=== PATIENT | female | born 1995 | race Caucasian/White ===

== ENCOUNTER 2024-05-21 00:30 | Day surgery (SDC) | payer OTHER, SELFPAY ==
[2024-05-13 09:48] VITALS: BMI 58.6
--- NOTE | 2024-05-13 09:49 | PC.NURSE ---
Report to the Outpatient Waiting Room, entrance under the green pavilion located off [facility], at time _1pm_ on date _[phone]_. Planned Procedure Time: _3pm_.? Time changes happen often and if your time is changed the preop area will call you the afternoon before. - You and your visitor will be asked to self-screen and do not enter if you have any COVID symptoms. Please call surgeon if you need to reschedule. - A mask is optional within the hospital at this time. Patients may have clear liquids (water, carbonated beverages, clear teas, apple juice) until 3 hours prior to surgery with a maximum of 20 ounces. - No food from midnight until time of surgery and no smoking, or chewing tobacco (or any form of nicotine). No chewing gum, candy or mints. Take only the following medications with a SIP of water on the morning of surgery: ___Sertraline, Symbicort and if needed Albuterol.____ DO NOT STOP ANY OF YOUR OTHER PRESCRIPTION MEDICATIONS PRIOR TO SURGERY EXCEPT THE FOLLOWING Hold all vitamins and supplements for 3 days per anesthesiologist. Medications to discontinue per physician Date to take last dose Please no make-up, nail surinamese, hairspray, perfume, deodorant, or body powder the day of surgery.? No jewelry (including any body piercings) or valuables the day of surgery, leave them at home.? Please take a shower or bath the night before, or the morning of, surgery with an antibacterial soap.? Wear comfortable, loose fitting clothing.? - Jewelry must be removed prior to entering the operating room.? Rings and piercings that are not removed may be cut off. - The hospital will not accept responsibility for valuables.? - Please leave all valuables, including medications, at home the day of surgery. If you are going home after surgery, a licensed industrial truck driver must drive you home.? - NO public transportation without another adult if you receive anesthesia. - We recommend that an adult stay with you for 24 hours following discharge. - We also recommend that you do not drive, make important decision, drink alcoholic beverages, or take any drugs that were not prescribed by your health care provider for at least 24 hours after your discharge time. Follow any additional instructions given to you from your surgeon. Telephone instructions given to __Юлия___and asked if any additional questions and then verbalized understanding. Patient advised to call surgeon office or pre surgery nurse liaison [phone] if any additional questions.
[2024-05-21] VITALS (7 sets, daily range): BP systolic 101–148; BP diastolic 66–101; PULSE 76–92; RESP 16–20; TEMP 36.2–36.8; O2SAT 93–100
--- OUTSIDE RECORDS SUMMARY | 2024-05-21 00:32 | XMS_ITS | CONTINUITY OF CARE DOCUMENT ---
Author Name ramsey mustafa Address Unknown Organization [facility] Address [id number] [place] [address] [address] [place] [address] Phone [phone] Care Team Providers Care Teletypesetter Monitor Name Role Phone Tom Laureano MD Unavailable [phone] Tom Laureano MD Unavailable [phone] INS[employer]ANCE [employer] Payer name Policy type / Coverage type [place] [employer] ID [facility] [id number] Other [id number]
--- OUTSIDE RECORDS SUMMARY | 2024-05-21 00:32 | XMS_ITS | Data Portability ---
Author Organization 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 Patient will come back in a year unless there are new symptoms. [email or web address] Not available 08/01/2019 10:48:20 06/21/2021 06/21/2021 Annual gynecological exam performed. Patient will come back in a year unless there are new symptoms. Not available 06/17/2021 13:46:14 04/14/2024 04/14/2024 Annual gynecological exam performed. Patient will come back in a year unless there are new symptoms. [email or web address] Not available 04/11/2024 09:08:50 Plan of Treatment Reminders Order Date Submit Date Provider Last Modified By Organization Details Last Modified Time Details Appointments SURG Salpingec deanna 2024 03:00P Jessica MOTA MD Not available Not available Not available Lab pap, IG + HR HPV - HPV regardles s but if HPV is positive need subtyping 16,18/45a dd ct/gc/tri ch 2024 025 [facility] (Lab), [address], [place], [address], 04/17/2024 13:47:58 Referral None recorded. Procedures None recorded. Surgeries salpingec deanna, [facility] (SUR[facility]) [address] [facility], [address], [place], [address], 05/02/2024 10:20:56 Imaging None recorded. Medication Orders None recorded. Patient TargetsNo targets recorded. Patient InstructionsNo instructions recorded. Reason for Referral None Reported. Results Created Date Observation Date Name Description Value Unit Range Abnormal Flag Note LastModifiedBy Organization Detail LastModifiedTime 08/01/19 20 08/03/2019 CT + NG DNA, PCR, unspe cifie d speci men trichomonas vaginalis, aptima (panther) NOT DETECT ED normal DNA testi ng perfo rmed by Trans cript ion Media jeff Ampli ficat ion (TMA) These resul ts shoul d be inter prete d in light of all clini jean-paul and labor atory findi ngs. This assay is highl y accur ate, but rare false posit amandeep and negat amandeep resul ts may occur . Posit amandeep resul ts in low preva lence popul ation s may requi re re-ev aluat ion. A negat amandeep resul t does not precl ude a possi ble infec tion due to a speci men inade quacy or sampl ing error . Test perfo rmed by [facility], d/b/a Kait kennedy, [address], [place] [address] , Tari Crawley ra, DO, Labor atory Dire tor. Not Available [facility] ([facility]) [address], [place], [address], 08/04/2019 09:04:30 08/01/19 20 08/03/2019 CT + NG DNA, PCR, unspe cifie d speci men neisseria gonorrhoeae, aptima NOT DETECT ED normal DNA testi ng perfo rmed by Trans cript ion Media jeff Ampli ficat ion (TMA) These resul ts shoul d be inter prete d in light of all clini jean-paul and labor atory findi ngs. This assay is highl y accur ate, but rare false posit amandeep and negat amandeep resul ts may occur . Posit amandeep resul ts in low preva lence popul ation s may requi re re-ev aluat ion. A negat amandeep resul t does not precl ude a possi ble infec tion due to a speci men inade quacy or sampl ing error . Test perfo rmed by [facility] [employer] [employer], d/b/a [facility], [address], [place] [address] , Tari Crawley ra, DO, Labor atory Direc tor. Not Available [facility] ([facility]) [address], [place], [address], 08/04/2019 09:04:30 08/01/19 20 08/03/2019 CT + NG DNA, PCR, unspe cifie d speci men chlamydia trachomatis, aptima NOT DETECT ED normal DNA testi ng perfo rmed by Trans cript ion Media jeff Ampli ficat ion (TMA) These resul ts shoul d be inter prete d in light of all clini jean-paul and labor atory findi ngs. This assay is highl y accur ate, but rare false posit amandeep and negat amandeep resul ts may occur . Posit amandeep resul ts in low preva lence popul ation s may requi re re-ev aluat ion. A negat amandeep resul t does not precl ude a possi ble infec tion due to a speci men inade quacy or sampl ing error . Test perfo rmed by [facility] [employer], [employer], d/b/a [facility], [address], [place] [address] , Tari Crawley ra, DO, Labor atory Direc tor. Not Available [facility] ([facility]) [address], [place], [address], 08/04/2019 09:04:30 06/22/19 22 06/21/2021 IMAGE GUIDE D PAP, REFLE X HPV IF ASCUS ONLY image guided Pap, reflex HPV ASCUS only SEE RESULT S BELOW CASE REPOR T: Cytol ogy Gynec ologi jean-paul Repor t Case: [id number] Autho ambrocio andrews Provi sheri: Ruby Winkler NP Colle cted: 06/21 1049 Order ing Locat ion: [place] [facility] Recei mili: 06/22 0804 First Scree n: Jeanie guerrero, Sidney wu, CT Speci men: Scree silvina Pap - Image d, Cervi x STATE MENT OF ADEQU ACY: Satis facto ry for evalu ation Trans forma tion zone compo nent prese nt FINAL DIAGN OSIS: Negat amandeep for Intra epith elial Lesio n or Quyen young (NIL) . Shift in dian sugge stive of bacte rial vagin osis. Elect jyothi garcia florinda d by Jeanie guerrero, Sidney wu, CT on 2021 at 2:53 PM ----- ----- ----- ----- ----- ----- ----- ----- ----- ----- ----- ----- ----- ----- ----- ----- ----- ---- COMME NT: Note: This speci men was revie wed by a Cytot echno logis t and/o r Patho logis t (as indic ated in this repor t) after evalu ation using the Thinp rep Imagi ng Syste m. CLINI JEAN-PAUL INFOR MATIO N: Menst rual Statu s: LMP (if appli cable ): Clini jean-paul Histo ry/Pr eviou s Pap: Type of Neopl gerda (if appli cable ): Signi fican t Clini jean-paul Findi ngs: Other Histo ry: Hormo ada (if appli cable ): PAP EDUCA RADHA L NOTE: The Pap Test is a scree silvina test with an inher ent false negat amandeep rate. Liqui d-bas ed sampl ing may decre ase, but will not elimi arthur, false negat amandeep resul ts. A negat amandeep resul t does not precl ude the prese nce and/o r devel opmen t of disea se, since the prese nce of abnor mal cells in the sampl e depen ds on the locat ion of the lesio n and sampl ing techn ique. Brianna nued regul ar scree silvina is the best metho d of cance r preve ntion . If repor jeff cytol ogic findi ng do not corre late with physi jean-paul and/o r histo rical findi ngs, furth er inves tigat ion is recom ovidio d, as clini milvia warra nted. Not Available [facility] (Lab) [address], [place], [address], 06/27/2021 15:55:33 06/22/19 22 06/21/2021 TRICH OMONA S VAGIN SKYE (RRNA ) trichomonas vaginalis ribosomal RNA (rrna) Negati ve negati ve Not Available [facility] (Lab) [address], [place], [address], 06/27/2021 15:55:34 06/22/19 22 06/21/2021 CT/GC (JESENIA) , THINP REP VIAL chlamydia trachomatis, PCR Negati ve negati ve Not Available [facility] (Lab) [address], [place], [address], 06/27/2021 15:55:34 06/22/19 22 06/21/2021 CT/GC (JESENIA) , THINP REP VIAL neisseria gonorrhoeae, PCR Negati ve negati ve Not Available [facility] (Lab) [address], [place], [address], 06/27/2021 15:55:34 06/30/19 22 06/29/2021 pregn rigoberto test, urine HCG negati ve Not Available [place] [address], [place], [address], 06/29/2021 09:44:03 04/15/19 25 04/14/2024 IMAGE GUIDE D PAP AND HPV REGAR DLESS image guided Pap, HPV regardless of Pap result SEE RESULT S BELOW CASE REPOR T: Cytol ogy Gynec ologi jean-paul Repor t Case: [id number] Autho ambrocio andrews Provi sheri: Dermo alecia, Ally , ANP, FACTORY MAINTENANCE MANAGER Colle cted: 04/14 1118 Order ing Locat ion: [place] [facility] Recei mili: 04/15 0855 First Scree n: Ava Faye, CT Rescr een: Andrenia Gallagher ret, CT Speci men: Scremeghna reyesg Pap - Image d, Cervi x STATE MENT OF ADEQU ACY: Satis facto ry for evalu ation Trans forma tion zone compo nent absen t The absen ce of an endoc ervic al compo nent was confi rmed by an addit ional scree ner. ----- ----- ----- ----- ----- ----- ----- ----- ----- ----- ----- ----- ----- ----- ----- ----- ----- ---- FINAL DIAGN OSIS: Negat amandeep for Intra epith elial Lesstacey farias or Quyen young (NIL) . Shift in dian sugge stive of bacte rial vagin osis. 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 COMME NT: This speci men was revie wed by a Cytot echno logis t and/o r Patho logis t (as indic ated in this repor t) after evalu ation using the Thinp rep Imagi ng Syste m. CLINI JEAN-PAUL INFOR MATIO N: Menst rual Statu s: LMP (if appli cable ): Clini jean-paul Histo ry/Pr eviou s Pap: Type of Neopl gerda (if appli cable ): Signi fican t Clini jean-paul Findi ngs: Other Histo ry: Hormo ada (if appli cable ): PAP EDUCA RADHA L NOTE: The Pap Test is a scree silvina test with an inher ent false negat amandeep rate. Liqui d-bas ed sampl ing may decre ase, but will not elimi arthur, false negat amandeep resul ts. A negat amandeep resul t does not precl ude the prese nce and/o r devel opmen t of disea se, since the prese nce of abnor mal cells in the sampl e depen ds on the locat ion of the lesio n and sampl ing techn ique. Brianna nued regul ar scree silvina is the best metho d of cance r preve ntion . If repor jfef cytol ogic findi ng do not corre late with physi jean-paul and/o r histo rical findi ngs, furth er inves tigat ion is recom ovidio d, as clini milvia tsai nted. Not Available [facility] (Lab) [address], [place], [address], 04/17/2024 13:47:58 04/15/19 25 04/14/2024 CT/GC (JESENIA) , THINP REP VIAL chlamydia trachomatis, PCR Negati ve negati ve Not Available [facility] (Lab) [address], [place], [address], 04/17/2024 13:47:58 04/15/19 25 04/14/2024 CT/GC (JESENIA) , THINP REP VIAL neisseria gonorrhoeae, PCR Negati ve negati ve Not Available [facility] (Lab) [address], [place], [address], 04/17/2024 13:47:58 04/15/19 25 04/14/2024 TRICH OMONA S VAGIN SKYE (RRNA ) trichomonas vaginalis ribosomal RNA (rrna) Negati ve negati ve Not Available [facility] (Lab) [address], [place], [address], 04/17/2024 13:47:59 Result Notes None recorded. Procedures Surgical History Date Name Laterality Status Provider Name and Address Organization Details Recorded Time 5 Date of Last Pap Smear completed Vanessa Fierro [facility] 04/25/2024 11:43:00 2 Nexplanon Insert completed Shirin Barr [facility] 06/29/2021 09:43:25 2 Nexplanon Removal completed SCOTT Jorgensen [address], [place], [address], [facility] 06/29/2021 09:29:03 Caesarean Section completed Tabitha Andersen [facility] 06/21/2021 11:01:17 Imaging Results None recorded. Procedure Notes None recorded. Medical Equipment None Reported. Allergies No known drug allergies Medications Name Sig Start Date Stop Date Status Note LastModified by Organization Details LastModified Time promethazin e-DM 6.25 mg-15 mg/5 mL oral syrup TAKE 5 ML BY MOUTH EVERY 4 HOURS FOR 5 DAYS 04/14 completed Not Available Not Available Not Available albuterol sulfate 2.5 mg/3 mL (0.083 %) solution for nebulizatio n INHALE 3 ML BY NEBULIZAT ION THREE TIMES DAILY active Not Available Not Available No t Available azithromyci n 250 mg tablet TAKE 2 TABLETS BY MOUTH TODAY, THEN TAKE 1 TABLET DAILY FOR 4 DAYS DIRECTED 04/14 completed Not Available Not Available Not Available fluconazole 150 mg tablet 07/31 completed Not Available Not Available Not Available ondansetron HCl 8 mg tablet TAKE 1 TABLET BY MOUTH TWICE DAILY FOR 7 DAYS NEEDED 06/21 completed Not Available Not Available Not Available prednisone 20 mg tablet TAKE 1 TABLET BY MOUTH EVERY DAY FOR 10 DAYS 04/14 completed Not Available Not Available Not Available tramadol 50 mg tablet 07/31 completed Not Available Not Available Not Available amoxicillin 500 mg tablet 07/31 completed Not Available Not Available Not Available benzonatate 100 mg capsule TAKE 1 CAPSULE BY MOUTH EVERY 8 HOURS NEEDED FOR COUGH AND CONGESTIO N 04/14 completed Not Available Not Available Not Available oseltamivir 75 mg capsule TAKE 1 CAPSULE BY MOUTH TWICE A DAY FOR 5 DAYS 04/14 completed Not Available Not Available Not Available sertraline 25 mg tablet TAKE 1 TABLET BY MOUTH EVERY DAY 04/14 completed Not Available Not Available Not Available montelukast 10 mg tablet TAKE 1 TABLET BY MOUTH EVERY DAY AT BEDTIME NEEDED 04/14 completed Not Available Not Available Not Available ergocalcife rol (vitamin D2) 1,250 mcg (50,000 unit) capsule TAKE 1 CAPSULE BY MOUTH EVERY WEEK FOR 14 DAYS DIRECTED 06/21 completed Not Available Not Available Not Available albuterol sulfate HFA 90 mcg/actuati on aerosol inhaler TAKE 2 PUFFS BY MOUTH EVERY 4 HOURS NEEDED active Not Available Not Available No t Available sertraline 50 mg tablet TAKE 1 TABLET BY MOUTH EVERY DAY FOR 30 DAYS active Not Available Not Available No t Available doxycycline hyclate 100 mg tablet TAKE 1 TABLET BY MOUTH TWICE DAILY 04/14 completed Not Available Not Available Not Available escitalopra m 10 mg tablet 04/14 completed Not Available Not Available Not Available budesonide- formoterol HFA 160 mcg-4.5 mcg/actuati on aerosol inhaler INHALE 2 PUFFS BY MOUTH TWICE DAILY DIRECTED 04/14 completed Not Available Not Available Not Available Nexplanon 68 mg subdermal implant Inject by subcutane ous route. active Not Available Not Available No t Available Vitals Date Recorded Body height Body mass index (BMI) Body weight Systolic blood pressure Diastolic blood pressure Provider Name and Address Organization Details Last Updated DateTime 08/01/2019 1935.48 cm 0.3 kg/m2 731662.7 2 g 122 mm[Hg] 85 mm[Hg] Vito Gray [facility] 0 10:48:51 Date Recorded Body height Body mass index (BMI) Body weight Systolic blood pressure Diastolic blood pressure Provider Name and Address Organization Details Last Updated DateTime 06/21/2021 160.02 cm 50.2 kg/m2 764179.0 8 g 135 mm[Hg] 91 mm[Hg] Tabitha Andersen [facility] 2 11:01:08 Date Recorded Body height Body mass index (BMI) Body weight Systolic blood pressure Diastolic blood pressure Provider Name and Address Organization Details Last Updated DateTime 06/29/2021 160.02 cm 50.7 kg/m2 957974.4 2 g 129 mm[Hg] 84 mm[Hg] Shirin Barr [facility] 2 09:37:26 Date Recorded Body height Body mass index (BMI) Body weight Systolic blood pressure Diastolic blood pressure Provider Name and Address Organization Details Last Updated DateTime 04/14/2024 160.02 cm 58.4 kg/m2 405226.7 6 g 137 mm[Hg] 78 mm[Hg] Jojo Pereraton [facility] 5 10:47:24 Date Recorded Body height Body mass index (BMI) Body weight Systolic blood pressure Diastolic blood pressure Provider Name and Address Organization Details Last Updated DateTime 04/25/2024 160.02 cm 58.5 kg/m2 127718.4 8 g 112 mm[Hg] 64 mm[Hg] Vanessa Fierro [facility] 5 11:42:42 Social History Question Answer Notes LastModified by Organizat ion Details LastModified Time Tobacco Smoking Status Current Every Day Smoker Elaine moore [facility] 06/29/2021 09:12:23 Do You Have An Advance Directive? No Information not available 06/21/2021 What Is Your Level Of Alcohol Consumption? Occasional Information not available 06/21/2021 How Many Years Have You Consumed Alcohol? 7 Information not available 06/21/2021 Are You Blind Or Do You Have Difficulty Seeing? No Information not available 06/21/2021 What Is Your Level Of Caffeine Consumption? Occasional Information not available 06/21/2021 How Much Tobacco Do You Chew? None Information not available 06/21/2021 In The 14 Days Before Symptom Onset, Have You Had Close Contact With A Laboratory-confir med COVID-19 While That Case Was Ill? No Information not available 06/21/2021 In The 14 Days Before Symptom Onset, Have You Had Close Contact With A Person Who Is Under Investigation For COVID-19 While That Person Was Ill? No Information not available 06/21/2021 Have You Been To An Area Known To Be High Risk For COVID-19? No [email or web address] Information not available 04/25/2024 Are You Deaf Or Do You Have Serious Difficulty Hearing? No Information not available 06/21/2021 What Type Of Diet Are You Following? REGULAR Information not available 06/21/2021 What Is The Highest Grade Or Level Of School You Have Completed Or The Highest Degree You Have Received? 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 No Information not available 06/21/2021 Do You Use Protection During Sex? No Information not available 06/21/2021 Do You Use Your Seat Belt Or Car Seat Routinely? Yes Information not available 06/21/2021 Do You Have Smoke And Carbon Monoxide Detectors In Your Home? Yes Information not available 06/21/2021 How Much Tobacco Do You Smoke? No Information not available 06/21/2021 Do You Feel Stressed (tense, Restless, Nervous, Or Anxious, Or Unable To Sleep At Night)? [id number] Information not available 06/21/2021 Do You Use Any Illicit Or Recreational Drugs? Yes Information not available 06/21/2021 Do You Use Sunscreen Routinely? No Information not available 06/21/2021 Have You Used IV Drugs? No Information not available 06/21/2021 Sex: Unknown Functional Status Question Answer Note LastModified by Organizat ion Details LastModified Time Do you have difficulty walking or climbing stairs? No Information not available 06/29/2021 Are you able to walk? [email or web address] Information not available 06/21/2021 Are you able to care for yourself? Yes [email or web address] Information not available 06/29/2021 Do you have difficulty dressing or bathing? No [email or web address] Information not available 06/29/2021 What is your exercise level? Occasional Information not available 06/21/2021 Mental Status None recorded. Family History Relationship Description Onset Age of this Age Resolved Age Notes LastModified by Organization Details LastModified Time Mother Asthma [email or web address] Not available 10:49:53 Maternal Grandfather Diabetes mellitus [email or web address] Not available 2019 10:50:04 Paternal Grandmother Carcinoma in situ of breast Not available 2021 09:12:22 Medical History Condition Response Allergies (Food, seasonal, environmental ) N Other N Drug/Latex Allergies/Reactions N Breast Cancer N Blood Transfusion N Dermatologic Disorders N Lung Disease N Defects or Inherited Disease N Breast Problem N Gestational Diabetes N Hematologic disorders N Anesthesia Complications N History of STI N Deep Vein Thrombosis N Polycystic ovary syndrome N Anxiety Disorder N Autoimmune disease N Arthritis N Polyps N Infertility N Acid Reflux (GERD) N History of abnormal pap N Cancer N Varicosities N Stroke N Neurologic/Epilepsy N Endometriosis N High Cholesterol N Fibromyalgia N Headaches N Kidney Disease N Heart Problems N Thyroid Problems N Kidney or Bladder Problems N GI Problems N Eating Disorder N Anemia N Art (IVF or FET) N Psychiatric Illness N Ovarian Cancer N Diabetes N Pulmonary (TB, Asthma) N Hepatitis/Liver Disease N No Past Medical History N Eczema N Urinary Tract Infection N Abuse/Domestic Violence N Asthma Y Trauma/Violence N Depression/ depression N Heart Disease N Pre-Eclampsia N Hypertension N Osteoporosis N Thrombophilias N Gynecological History Statement/Question Response Abnormal Pap N Flow Moderate Date of LMP 03/20/2024 Was last menstrual period normal N STIs/STDs N HPV Vaccine Y Duration of Flow (days) 8 Current Control Method Implant Age at First Child 16 Date of control 07/09/2018 Frequency of Cycle (Q days) 19 Sexually Active? Y Implant Menses Monthly N Age of first menstrual cycle 11 Date of Last Pap Smear 04/14/2024 Sexual Problems? N Desired Control Method Sterilizati on LMP Approximate N Obstetrics History GPAL:G 1 P 1 0 0 1 Type Value Full Term 1 Living 1 Total 1 Past Encounters Encounter ID Performer Location Encounter Start Date Encounter Closed Date Diagnosis/Indication Diagnosis SNOMED-CT Code Diagnosis ICD10 Code Diagnosis [id number] [address] [address] 08/01/2019 10:32:18 08/01/2019 11:27:10 Gynecologic examination 18414619 Z01.419 Take Calcium with Vitamin D 1200mg daily if not receiving in daily diet. It is strongly advised to have an annual flu shot and up can obtain at most pharmacies . If you have not had a TDap shot in the last 10 years you should obtain one as well. Discussed with patient & provided with informatio n regarding Gardisil vaccine to prevent the 4 strains for HPV that cause cervical cancer if under age 26. Encourage safe sexual practices, to use condoms and limit partners if not already in a monogamous relationsh ip. Do monthly self breast exams. Have mammogram yearly or every other year depending on family history. BRCA testing is now available for patients with strong genetic history of female cancer. If interested contact the office. Engage in daily exercise of low impact aerobic exercise 45-60 minutes 4-5 times weekly. Avoid tobacco and illicit drugs as well as using moderation with alcohol intake less than 1-2 8 oz beverages daily. This lifestyle behavior pattern will lead to less health conditions and longer life span. If BMI greater than 25 weight watchers or dietary consult advised. Patient received above instructio ns, and questions have been answered. If you have any questions please call or respond to this email. Patient was made aware of the patient portal and may obtain a paper copy of today's plan if desired. Pap defer until 2020 per asccp unless otherwise indicated. STD screen sent CBE done SBE taught [id number] SCOTT Jorgensen [place] [address] [address] 06/21/2021 10:28:59 06/21/2021 11:28:52 Gynecologic examination [id number] Z01.419 Take Calcium with Vitamin D 1200mg daily if not receiving in daily diet. It is strongly advised to have an annual flu shot and up can obtain at most pharmacies . If you have not had a TDap shot in the last 10 years you should obtain one as well. Discussed with patient & provided with informatio n regarding Gardisil vaccine to prevent the 4 strains for HPV that cause cervical cancer if under age 26. Encourage safe sexual practices, to use condoms and limit partners if not already in a monogamous relationsh ip. Do monthly self breast exams. Have mammogram yearly or every other year depending on family history. BRCA testing is now available for patients with strong genetic history of female cancer. If interested contact the office. Engage in daily exercise of low impact aerobic exercise 45-60 minutes 4-5 times weekly. Avoid tobacco and illicit drugs as well as using moderation with alcohol intake less than 1-2 8 oz beverages daily. This lifestyle behavior pattern will lead to less health conditions and longer life span. If BMI greater than 25 weight watchers or dietary consult advised. Patient received above instructio ns, and questions have been answered. If you have any questions please call or respond to this email. Patient was made aware of the patient portal and may obtain a paper copy of today's plan if desired. WWE, no issuesNo hx of abnormal papsPap done todaySTI testing added to papNexplan on expires 07/09/2021 , desires to continue this method of controlShe will RTC for removal/in sert prior to the expiration dateUTD with routine labs with PCPRTC for removal/in sert Venereal d isease screening [id number] Z11.3 [facility] [id number] Z30.9 [id number] SCOTT Jorgensen [place] [address] [address] 06/29/2021 09:09:49 06/29/2021 10:12:32 Insertion of subcutaneous contraceptive [id number] Z30.9 Removal site was cleansed with betadine and 3cc of lidocaine used for anesthesia . Device was removed in normal fashion without difficulty .She was given all the r/b/a of placement of the Nexplanon device and has signed the consent. She is fully aware of all possible side effects of the device and has decided to move forward with placement. Device was placed in the left arm per usual fashion w/o complicati on and patient instructed to f/u in one month or earlier if there are any si/sx of infection or hypersensi tivity at the insertion site. Will have her f/u in 2 months for a med check Contracept ion care management [id number] Z30.9 Removal of subcutaneous contraceptive [id number] Z30.46 [id number] ALLY MARIA NP [place] [address] [address] 04/14/2024 10:38:53 04/14/2024 11:10:27 Gynecologic examination [id number] Z01.419 Annual gynecologi jean-paul exam performed. Patient will come back in a year unless there are new symptoms. Suggest Calcium with Vitamin D if not eating in diet. Patient advised to get annual flu shot. Recommend yearly physicals and perform monthly breast exams. Genetic testing is available for patients with family history of cancer. Engage in safe sexual practices, use condoms. Encouraged to have daily exercise. Avoid tobacco and illicit drugs, moderation of alcohol. If BMI greater than 25 dietary consult advised. If you have any questions please call or email. Pap smear- pap w/ HPV collected laboratory evaluation - PCP STI testing - requested Contracept ion care management [id number] Z30.9 Nexplanon expires 07/03/2024. Discussed other LARC BC options that will also help with cycle regulation , such as IUDs, nexplanon, depo. Risks/bene fits reviewed.P atient interested in permanent sterilizat ion with bilateral salpingect kishan. Desires consult with to discuss surgical options. Venereal d isease screening [id number] Z11.3 Pt requested STI testing.Di scussed the various types of STDs, related symptoms and the potential consequenc es (including effects on fertility) of STD infections . Reviewed ways to limit exposure and prevention techniques . [id number] Yobani Mota MD [place] [address] [address] 04/25/2024 11:26:06 04/25/2024 12:27:49 Female sterilization [id number] Z30.2 This patient presents for female sterilizat ion. The patient desires tubal ligation. She is certain that she no longer wants to be fertile. We discussed sterilizat ion in detail. I described the procedure to the patient in detail. I informed her that we remove the tubes entirely in a. We discussed alternativ es. The patient knows they are highly effective reversible options. She understand s that the Salpingect kishan n is permanent. We discussed failure rate. She understand s there is reported failure rate to salpingect kishan.. As described salpingect kishan and removal of the entire tube. I discussed the reduction in ovarian cancer risk. The patient understand s and is ready to proceed with laparoscop ic bilateral Salpingect kishan. She understand s the risks, benefits, and alternativ es. She has completed the informed consent process and is ready to proceed. Health Concerns Section Related Observation LastModified by Organization Detai ls LastModified Time None Recorded Concern Status LastModified by Organization Details LastModified Time None Recorded Advance Directives Directive N: Payers Encounter Date Sequence Insurance Name Policy Number Policy Patel Covered Member ID Patel Member ID Guarantor Name 08/01/2019 1 [facility] - DOS PRIOR TO 2020 (MEDICAID REPLACEMENT - HMO) Юлия Harper [id number] Юлия Harper 06/21/2021 1 [facility] [id number] Юлия Harper [id number] Юлия Harper 06/29/2021 1 [facility] [id number] Юлия Harper [id number] Юлия Harper 06/29/2021 2 [place] [employer] Юлия Harper [id number] Юлия Harper 04/14/2024 1 [facility] [id number] Юлия Harper [id number] Юлия Harper 04/25/2024 1 [facility] [id number] Юлия Harper [id number] Юлия Harper Notes Date Note Type Note Provider Name and Address Organization Details Recorded Time 08/01/2019 text/html Annual GYNReport ed bypatient.History:n o gynecologic complaints Menstrual cycle:Normal menses Urinary symptoms:No hematuria; No incontinence Vulva:No genital lesion Vagina:Normal vaginal discharge Breast:No breast pain; No breast lump; No nipple discharge Current Contraception:Satis fied with current contraception; Monogamous relationship; Implanon; Requests testing for sexually transmitted infections Sexual complaints:No sexual complaints; No pain during intercourse; Normal libido Menopausal Symptoms:No menopausal symptoms; Normal vaginal lubrication Psychological symptoms:No depression; No anxiety; No PMDD Preventive measures:Encourage self breast examination; Encourage regular exercise; Encourage no tobacco use; Followed with Q3 year pap smear and high risk HPV typingNotes:DEnies hx of abn pap SCOTT Merino- [address], [place], [address], [facility] 08/01/2019 11:26:28 06/21/2021 text/html Annual GYNReport ed bypatient.Menstrual cycle:Normal menses Urinary symptoms:No hematuria; No incontinence Vulva:No genital lesion Vagina:Normal vaginal discharge Breast:No breast pain; No breast lump; No nipple discharge Current Contraception:Satis fied with current contraception; Subdermal contraceptive implant Sexual complaints:No sexual complaints; No pain during intercourse; Normal libido Menopausal Symptoms:No menopausal symptoms; Normal vaginal lubrication Psychological symptoms:No depression; No anxiety; No PMDD Preventive measures:Encourage self breast examination; Encourage regular exercise; Encourage no tobacco use; Encourage regular mammograms starting age 40 SCOTT Jorgensen [address], [place], [address], [facility] 06/21/2021 11:21:08 06/29/2021 text/html Here for nexplan on removal and insert. Current nexplanon expires 07/09/2021. SCOTT Jorgensen [address], [place], [address], [facility] 06/29/2021 10:10:06 04/14/2024 text/html Annual GYNReport ed bypatient.History:n o gynecologic complaints Menstrual cycle:Normal menses Urinary symptoms:No hematuria; No incontinence Vulva:No genital lesion Vagina:Normal vaginal discharge Breast:No breast pain; No breast lump; No nipple discharge Current Contraception:Impla non Sexual complaints:No sexual complaints; No pain during intercourse; Normal libido Menopausal Symptoms:No menopausal symptoms; Normal vaginal lubrication Psychological symptoms:No depression; No anxiety; No PMDD Preventive measures:Encourage self breast examination; Encourage regular exercise; Encourage no tobacco use; Encourage regular mammograms starting age 40 Patient presents for annual well woman exam. Patient denies concerns today. Patient interested in permanent sterilization, currently has nexplanon that expires 07/03/24 ALLY MARIA NP [address], [place], [address], [facility] 04/14/2024 11:09:04 04/25/2024 text/html This patient presents for female sterilization. The patient desires tubal ligation. She is certain that she no longer wants to be fertile. We discussed sterilization in detail. I described the procedure to the patient in detail. I informed her that we remove the tubes entirely in a. We discussed alternatives. The patient knows they are highly effective reversible options. She understands that the Salpingectomy n is permanent. We discussed failure rate. She understands there is reported failure rate to salpingectomy.. As described salpingectomy and removal of the entire tube. I discussed the reduction in ovarian cancer risk. The patient understands and is ready to proceed with laparoscopic bilateral Salpingectomy. She understands the risks, benefits, and alternatives. She has completed the informed consent process and is ready to proceed. Yobani Mota MD [address], [place], [address], [facility] 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 08/01/19 20 1 CLOSED Fetus Data First Name Last Name Admitted to NICU Weight (g) Sex Living Outcome Pediatric Complications Fetus ID Race Codes Race Delivery Type 3713.55 [id number] M Full Term [id number] Primary Kwadwo Calculation Initial Kwadwo Date Initial Exam Date Initial Exam Provider Initial Ultrasound Date Last Menstrual Period Date Ultra Sound Weeks Gestation 0 Eighteen To Twenty Week Kwadwo Update Ultra Sound Date Fundal Height At Umbil Quickening Date Ultra Sound Latest Weeks Gestation Final Kwadwo Confirmed By Final Kwadwo Confirmed Date Final Kwadwo Date Ultra Sound Latest Days Gestation 0 0 Menstrual History Last Menstrual Date Menses Monthly On Bcp Conception Prior Menses Frequency Hcg Plus Date Menarche Onset Age Delivery Information Delivery Date Delivery Type Labor Anesthesia Weeks Gestation Incision Type Labor Labor Length Hrs Delivered By Post Complications Tubal Sterilization Discharge Date Comments 3 Discharge Information Feeding Method Contraceptive Method Maternal HG B and HCT Levels
--- NOTE | 2024-05-21 13:14 | WPDANESEPPF ---
Anes - Initial Pre Proc Eval Procedure: Operation Date: 05/21/24 15:00 Proposed Procedures p Laparoscopic Bilateral Salpingectomy - oYbani Mota MD Date/Time: 05/21/24 13:14 Surgeon: Yobani Mota MD Pre Op Diagnosis: Female Serilization Patient Data Age: 28 Gender: F Height: 1.6 m Weight: 149.4 kg Last Vital Signs Temp 36.8 C 05/21/24 12:55 Pulse 92 05/21/24 12:55 Resp 18 05/21/24 12:55 BP 148/101 H 05/21/24 12:55 Pulse Ox 98 05/21/24 12:55 O2 Del Method Room Air 05/21/24 12:55 Allergies Allergy/AdvReac Type Severity Reaction Status Date / Time No Known Allergies Allergy Verified 05/13/24 09:40 Home Medications ?Medication ?Instructions ?Recorded ?Confirmed ?Type albuterol sulfate 2.5 mg/3 mL 2.5 mg inhalation Q8H PRN 05/13/24 05/13/24 History (0.083 %) solution for nebulization shortness of breath or wheezing albuterol sulfate 90 mcg/actuation 2 puff inhalation Q6H PRN 05/13/24 05/13/24 History aerosol inhaler shortness of breath or wheezing budesonide-formoterol HFA 160 2 puff inhalation Q12H 05/13/24 05/13/24 History mcg-4.5 mcg/actuation aerosol inhaler sertraline 50 mg tablet 50 mg PO Q24H 05/13/24 05/13/24 History Patient hx anesthesia problems: none Family hx anesthesia problems: none Results Review: All pre-operative results and documents have been reviewed as part of the pre-operative evaluation. [facility] Social History Social History Smoking status: Never smoker Living arrangements: alone Spiritual care concerns: No Anes - Eval Final PreProcedure Day of Procedure 05/21/24 13:14 Patient weight: super morbidly obese Heart: regular rate and rhythm Lungs: decreased breath sounds Airway: Mallampati scale class II Neurological: alert and oriented Last oral intake: >/= 8 hours ASA classification: III Emergent: no Anesthetic plan: proceed Anesthesia type and monitoring: general ETT and standard monitoring Results Review: All pre-operative results and documents have been reviewed as part of the pre-operative evaluation. Informed Consent: The patient's anesthetic plan and its attendant risks and benefits were discussed with the patient/family/POA. Questions were solicited and answers provided to the satisfaction of the patient/family/POA.
[2024-05-21] MEDS: LACTATED RINGERS 1,000 ML 30 ML IV CONT (13:15)
[2024-05-21] MEDS: KETOROLAC 15 MG/ML VIAL (*BKC) IV PUSH (13:20)
[2024-05-21] MEDS: ACETAMINOPHEN 500 MG TABLET 1000 MG PO (13:20)
[2024-05-21 13:25] LABS: BEDSIDEPREGUCG Negative (Negative)
--- NOTE | 2024-05-21 14:33 | WPDHPUPDATE1 ---
History and Physical Update Update Date/Time: 05/21/24 14:33 History and Physical has been reviewed, including an updated exam of the patient. There are NO changes in the patient's condition. Risks, benefits, and alternatives have been discussed and questions answered. Patient agrees to proceed with procedure.
--- NOTE | 2024-05-21 14:33 | PM.IMHP ---
H&P: HPI History of Present Illness Date/Time: 05/21/24 14:33 Chief Complaint: Unwanted fertility Narrative: This patient is a 28-year-old female with unwanted fertility. We have agreed to perform laparoscopic bilateral salpingectomy. She understands risks, benefits, and alternatives. She has completed the informed consent process and is ready to proceed. The patient understands the details of the procedure. The procedure has been explained in detail. She understands the risks. She understands that injuries may occur that result in hospitalization, more surgery, and severe illness. She understands risk of hemorrhage and infection. She denies any chest pain or shortness of breath. She denies any nausea, vomiting, fever, chills. Review of Systems Review of Systems: All systems reviewed & are unremarkable except as noted in HPI and below Constitutional: Constitutional: Denies chills, Denies fatigue, Denies fever(s) and Denies weakness Eyes: Eyes: Denies blurry vision, Denies change in vision, Denies loss of peripheral vision, Denies loss of vision, Denies other visual disturbances and Denies eye pain ENT: Denies vertigo, Denies dizziness, Denies hearing loss, Denies mouth pain, Denies nasal obstruction, Denies neck mass and Denies neck pain Cardiovascular: Cardiovascular: Denies chest pain, Denies diaphoresis, Denies syncope, Denies leg edema and Denies dyspnea Respiratory: Respiratory: Denies chest congestion, Denies cough, Denies hemoptysis, Denies dyspnea and Denies wheezing Gastrointestinal: Gastrointestinal: Denies abdominal pain, Denies constipation, Denies diarrhea, Denies nausea and Denies vomiting Genitourinary: Genitourinary: Denies hematuria, Denies change in libido, Denies nocturia, Denies genital lesions, Denies flank pain and Denies urinary urgency Musculoskeletal: Musculoskeletal: Denies abnormal gait, Denies back pain, Denies myalgias, Denies arthralgias, Denies joint swelling, Denies muscle weakness and Denies neck pain Integumentary/Breasts: Skin/Breast: Denies swelling, Denies breast pain, Denies breast mass, Denies dry skin, Denies nipple discharge, Denies unusual bruising and Denies jaundice Neurologic: Denies Neuro-related abnormal movements, Denies Abnormal speech present, Denies abnormal gait, Denies behavioral changes, Denies confusion, Denies vertigo, Denies dizziness, Denies syncope, Denies loss of vision, Denies memory loss, Denies convulsions and Denies weakness Psychiatric: Psychiatric: Denies abnormal sleep pattern, Denies behavioral changes, Denies change in libido, Denies confusion, Denies depression, Denies anhedonia and Denies memory loss Endocrine: Endocrine: Reports no additional endocrine complaints, Denies change in libido and Denies fatigue Hematologic/Lymphatic: Hematologic/Lymphatic: Reports no additional hematologic/lymphatic complaints Allergic/Immunologic: Allergic/Immunologic: Reports no additional allergic/immunologic complaints and Denies wheezing PMFSH Social History Social History Smoking status: Never smoker Living arrangements: alone Spiritual care concerns: No Meds Home Medications and Allergies Home Medications ?Medication ?Instructions ?Recorded ?Confirmed ?Type albuterol sulfate 2.5 mg/3 mL 2.5 mg inhalation Q8H PRN 05/13/24 05/13/24 History (0.083 %) solution for nebulization shortness of breath or wheezing albuterol sulfate 90 mcg/actuation 2 puff inhalation Q6H PRN 05/13/24 05/13/24 History aerosol inhaler shortness of breath or wheezing budesonide-formoterol HFA 160 2 puff inhalation Q12H 05/13/24 05/13/24 History mcg-4.5 mcg/actuation aerosol inhaler sertraline 50 mg tablet 50 mg PO Q24H 05/13/24 05/21/24 History Allergies Allergy/AdvReac Type Severity Reaction Status Date / Time No Known Allergies Allergy Verified 05/21/24 13:37 Vital Signs Vital Signs - 24 hr 05/21/24 12:55 Temperature 98.2 F Pulse Rate 92 Respiratory Rate 18 Blood Pressure 148/101 H Pulse Oximetry 98 Oxygen Delivery Room Air Exam Const: General: cooperative, healthy appearing, comfortable and no acute distress Orientation/consciousness: oriented to person, oriented to place and oriented to time HENMT: Head: normal to inspection Ears: external ears normal Face/Nose/Sinus: Normal external nose present and normal facial exam Face and sinus: normal facial exam Eyes: General: appearance normal, both eyes and all related structures Neck: Neck: normal visual inspection, trachea midline and supple Resp: Auscultation: clear to auscultation bilaterally, no crackles, no rales, no rhonchi and no wheezes Cardio: Rate: regular rate Rhythm: regular rhythm Heart sounds: no click, no murmurs and no rubs GI: GI Palp: No abdominal tenderness, No Soft to palpation, No Tenderness to palpation present (GI) and No Palpable mass present Auscultation: normal bowel sounds Skin: General skin exam: normal color and no rashes or lesions noted Neuro: General: oriented to person, oriented to place and oriented to time Extrem: General: normal to inspection, no joint enlargement, no clubbing, cyanosis or edema, no pedal edema and no calf tenderness Psych: Appearance: grossly normal Mental Status: mental status grossly normal Speech and movement: Normal speech and movement present Assessment and Plan Assessment and plan (1) Encounter for female sterilization procedure: Code(s): Z30.2 - Encounter for sterilization Status: Acute Plan This patient is a 28-year-old female with unwanted fertility. We have agreed to perform laparoscopic bilateral salpingectomy. She understands risks, benefits, and alternatives. She has completed the informed consent process and is ready to proceed.
--- NOTE | 2024-05-21 15:51 | P.OP_ITS ---
Procedure Note - Detailed Date of Procedure 05/21/24 Pre-op Diagnosis Female Serilization Post-op Diagnosis Same Procedure Performed Laparoscopic bilateral salpingectomy Surgeon Yobani Mota MD Anesthesia General Indications Unwanted fertility Findings Normal pelvic anatomy Description of Procedure The patient was taken the operating room. She was prepped and draped in the dorsal lithotomy position after induction of general anesthesia. A 5 mm skin incision was made in the left upper quadrant of the abdominal skin. A 5 mm trocar was inserted the intra-abdominal cavity under direct visualization of the scope. Pneumoperitoneum was achieved. A 5 mm trocar was inserted in the left lower quadrant identical fashion. A 5 mm infraumbilical trocar was inserted in identical fashion as well. The bilateral fallopian tubes were removed. This was done by using a LigaSure cautery. The mesosalpinx adjacent to the tube was cauterized transected with LigaSure. This was initiated in the area the ovary a nd in a stepwise fashion moved medially to the area of the cornu of the uterus. Once there the fallopian tube was cauterized and transected. This was done in identical fashion on each side. The fallopian tubes were taken out through the left lower quadrant trocar site. The pneumoperitoneum was reduced. The trocars removed. The skin was closed with subcuticular 4 Monocryl and covered with Kenneth mabond. She was taken to cover stable condition. Sponge lap and needle counts were correct x2. Estimated Blood Loss 5 Drains No Packing No Pathology Yes Complications No immediate complications Condition Stable Disposition PACU
[2024-05-21] MEDS: oxyCODONE HCL (*CRX) 5 MG TAB IR PO (16:48)
== END 2024-05-21 17:15 | disposition home or self-care (01) ==
PROVIDERS: PCP Physician Assistant Medical; Visit Provider Obstetrics & Gynecology
PROC: (CPT 49320; principal; 2024-05-21 15:00)
DX: Z30.2 Encounter for sterilization (principal); G89.18 Other acute postprocedural pain; E66.01 Morbid (severe) obesity due to excess calories; Z68.43 Body mass index [BMI] 50.0-59.9, adult; Z79.51 Long term (current) use of inhaled steroids
CPT/HCPCS: 58661; 88302; A9270; J1100; J1885; J2003; J2250; J2405; J2704; J3010; J7030; J7120